=== PATIENT | male | born 1990 | race Caucasian/White ===

== ENCOUNTER 2023-01-12 16:55 | Outpatient (CLI) | payer BC, MEDICAID, SELFPAY ==
[2023-01-12 19:13] LABS: Strep A DNA Probe* NOT DETECTED (Not Detectd)
== END 2023-01-12 16:56 | disposition home or self-care (01) ==
LOC: KYNREF 16:56
PROVIDERS: PCP Nurse Practitioner Family; Visit Provider Nurse Practitioner Family
DX: J02.9 Acute pharyngitis, unspecified (principal)
CPT/HCPCS: 87651

== ENCOUNTER 2023-01-13 09:03 | Outpatient (CLI) | payer BC, MEDICAID, SELFPAY ==
--- NOTE | 2023-01-13 09:00 | CRLHL7_ITS ---
For Patients: As a result of the Century Cures Act, medical imaging exams and procedure reports are released immediately into your electronic medical record. You may view this report before your referring provider. If you have questions, please contact your health care provider. Indication: left lower quadrant abdominal pain, microscopic hematuria Technique: Noncontrast CT abdomen and pelvis Please note that all CT scans at this facility use dose modulation, iterative reconstruction, and/or weight-based dosing when appropriate to reduce radiation dose to as low as reasonably achievable. Comparison: 09/29/2021 Findings: Lung bases are clear. Mild hepatic steatosis. Gallbladder normal. Normal pancreas, spleen, adrenal glands, kidneys and ureters. Appendix is absent. No adenopathy, free air, free fluid or abscess. There is mild inflammatory stranding adjacent to the anterior aspect of the distal left colon/proximal sigmoid colon, series 2, images 126-132. No adjacent diverticula noted. Osseous structures normal. Impression: Mild epiploic appendagitis involving the distal left colon/proximal sigmoid colon. No abscess or free air. No renal, ureteral or bladder stone. Please note that all CT scans at this facility use dose modulation, iterative reconstruction, and/or weight-based dosing when appropriate to reduce radiation dose to as low as reasonably achievable. Dictated by Amador Boateng MD @ 01/13/2023 11:03:10 AM (Electronically Signed)
[2023-01-13 09:49] LABS: Appearance Urine Clear (Clear); Bilirubin Urine Negative (Negative); Blood Urine 3+ (Negative); Color Urine Yellow (Yellow); Glucose Urine Negative (Negative); Ketones Urine Negative (Negative); Leukocyte Esterase Urine Negative (Negative); Nitrite Urine Negative (Negative); Protein Urine 2+ (Negative); Specific Gravity Urine 1.025 (1.000-1.030); pH Urine 6.5 (5.0-8.5)
[2023-01-13 09:52] LABS: Basophils Absolute Auto 0.03 K/uL (0.00-0.30); Basophils Percent Auto 0.4 % (0.0-3.0); Hematocrit 44.4 % (37.0-53.0); Hemoglobin* 15.7 gm/dL (13.5-17.5); Immature Granulocytes Abs Auto 0.04 K/uL (0.00-0.30); Immature Granulocytes Pct Auto 0.5 %; Lymphocytes Percent Auto 19.3 % (20-44); Mean Corpuscular HGB Conc 35 gm/dL (32-36); Mean Corpuscular Hemoglobin 30 pg (26-34); Mean Corpuscular Volume 86 fL (80-100); Monocytes Percent Auto 12.6 % (0.0-11.0); Neutrophils Absolute Auto 4.73 K/uL (1.7-7.0); Neutrophils Percent Auto 63.2 % (42.0-72.0); Platelet Count* 179 K/uL (140-440); RDW Coefficient of Variation % 12.2 % (11.5-15.5); Red Blood Count 5.18 m/uL (4.30-5.90); White Blood Count* 7.48 K/uL (4.50-11.00)
[2023-01-13 09:53] LABS: Slide Review Reflex No
[2023-01-13 10:02] LABS: Bacteria Urine Few; Mucus Urine Few; RBC Urine 25-50 (0-2); Squamous Epithelial Cell Urine Few (None-Few)
[2023-01-13 10:08] LABS: Chloride* 112 mmol/L (96-114); Sodium* 141 mmol/L (135-149)
[2023-01-13 10:09] LABS: Potassium* 4.8 mmol/L (3.6-5.1)
[2023-01-13 10:11] LABS: Carbon Dioxide* 23 mmol/L (20-32); Creatinine* 0.8 mg/dL (0.5-1.5); Estimated Glomerular Filt Rate 121 ml/min
[2023-01-13 10:12] LABS: Blood Urea Nitrogen* 13 mg/dL (5-24); Calcium* 9.3 mg/dL (8.4-10.6); Glucose* 91 mg/dL (60-115)
== END 2023-01-13 09:04 | disposition home or self-care (01) ==
PROVIDERS: PCP Nurse Practitioner Family; Visit Provider Nurse Practitioner Family
DX: R31.29 Other microscopic hematuria (principal); K63.89 Other specified diseases of intestine; R10.32 Left lower quadrant pain
CPT/HCPCS: 36415; 74176; 80048; 81003; 81015; 85025; 87086